=== PATIENT | male | born 1960 | race Caucasian/White ===

== ENCOUNTER 2019-08-30 09:54 | Day surgery (SDC) | payer BC ==
[~2019-08-30 09:54] MED LIST: Metoclopramide 10 MG/2 ML SDV IV PRN; Sodium Chloride 0.9% 1,000 ML IV SCH
[2019-08-30] MEDS ORDERED: Propofol 1,000 MG/100 ML SDV ONE (12:45)
--- NOTE | 2019-08-30 15:47 | OR ---
DATE OF OPERATION: 08/30/2019 SURGEON: Jey Guthrie MD PREOPERATIVE DIAGNOSIS: Screening colonoscopy. POSTOPERATIVE DIAGNOSIS: Screening colonoscopy. PROCEDURE: Colonoscopy. ANESTHESIA: MAC. ESTIMATED BLOOD LOSS: None. COMPLICATIONS: None. INDICATION FOR THE PROCEDURE: The patient is a 58-year-old male who last had a colonoscopy approximately 10 years ago. He had that done for bleeding. No source of bleeding was identified at that time. He denies any change in bowel habits. No bleeding since that time. He is here today for a 10-year screening colonoscopy. DESCRIPTION OF PROCEDURE: Informed consent was obtained from the patient. The patient was taken to the operating room, placed on the table in the left lateral decubitus position. Monitored anesthesia care was administered. Digital rectal exam performed, it was normal. Colonoscope was then advanced through the anus, directed towards the cecum. Cecum was reached and identified by appendiceal orifice and the ileocecal valve. Colonoscope was then slowly withdrawn. No masses. No polyps. No areas of ischemia or inflammation. He did have several small diverticula in the sigmoid colon. Rectum was otherwise unremarkable as well. The colonoscope then withdrawn. FINDINGS: Several small sigmoid diverticula. RECOMMENDATIONS: We would recommend repeat screening colonoscopy in 10 years. KT /[id number]
== END 2019-08-30 14:10 | disposition home or self-care (01) ==
LOC: LB.SDS 09:54
PROVIDERS: ATTEND Surgery
DX: Z12.11 Encounter for screening for malignant neoplasm of colon (principal); K57.30 Diverticulosis of large intestine without perforation or abscess without bleeding; Z98.890 Other specified postprocedural states
CPT/HCPCS: 45378; J2704; J7030

== ENCOUNTER 2023-04-28 22:25 | Emergency (ER) | payer BC ==
[2023-04-28] MEDS: Ketorolac 60 MG/2 ML SDV IM ONE (22:44)
== END 2023-04-28 22:50 | disposition home or self-care (01) ==
LOC: LB.ED 22:25
DX: S86.911A Strain of unspecified muscle(s) and tendon(s) at lower leg level, right leg, initial encounter (principal); Z79.899 Other long term (current) drug therapy; X58.XXXA Exposure to other specified factors, initial encounter
CPT/HCPCS: 96372; 99283; J1885

== ENCOUNTER 2024-11-09 11:25 | Emergency (ER) | payer BC ==
[2024-11-09 13:00] LABS: INFLUENZA A NAA NEGATIVE (NEGATIVE); INFLUENZA B NAA NEGATIVE (NEGATIVE); RESPIRATORY SYNCYTIAL VIR NAA NEGATIVE (NEGATIVE)
[2024-11-09 13:01] LABS: CORONAVIRUS COVID-19 NAA NEGATIVE (NEGATIVE)
== END 2024-11-09 13:55 | disposition home or self-care (01) ==
LOC: LB.ED 11:25
DX: R05.1 Acute cough (principal); E78.00 Pure hypercholesterolemia, unspecified; K21.9 Gastro-esophageal reflux disease without esophagitis; Z79.899 Other long term (current) drug therapy; Z90.49 Acquired absence of other specified parts of digestive tract
CPT/HCPCS: 71046; 87637; 99283; Q0144; A9270-GY